=== PATIENT | female | born 1955 | race Caucasian/White ===

== ENCOUNTER 2018-12-05 15:47 | Emergency (ER) | payer MEDICARE, BC ==
--- NOTE | 2018-12-05 17:51 | EDM.PDOC ---
ED HPI GENERAL MEDICAL PROBLEM - General Chief Complaint: Genitourinary Problem Stated Complaint: UTI Time Seen by Provider: 12/05/18 15:55 Source of Information: Reports: Patient History Limitations: Reports: No Limitations - History of Present Illness INITIAL COMMENTS - FREE TEXT/NARRATIVE: 63-year-old female presents emergency room with complaints of abdominal pressure. Her symptoms began around . She's had some recent urinary tract infections this year and required under duration of antibiotics. She began noticing some increasing discomfort in her lower abdomen pelvic region which she describes as pressure since and thought was getting worse. She denies any dysuria, hematuria or frequency. She's not experience any fever or chills. No nausea or vomiting. No diarrhea complaints. She stated her stools were softer yesterday. She was concerned because her last urinary tract infection she feels she did not follow-up with a warning signs that she describes and didn't want to take a chance of having a recurrent urinary tract infection today. Her diet and appetite has been good. He does have a history of high blood pressures well controlled. She denies any chest pain or shortness of breath. She's not had any headaches. She is otherwise been in her normal state of health. Onset Date: 12/03/18 Duration: Day(s):, Getting Worse Location: Reports: Pelvis Quality: Reports: Pressure Severity: Moderate Improves with: Reports: None Worsens with: Reports: None Associated Symptoms: Reports: No Other Symptoms. Denies: Fever/Chills, Nausea/ Vomiting - Related Data Allergies Allergy/AdvReac Type Severity Reaction Status Date / Time No Known Drug Allergies Allergy Cannot Verified 12/05/18 15:58 Remember Home Meds: Home Meds Levothyroxine 75 mcg PO DAILY 12/05/18 [History] amLODIPine [Norvasc] 10 mg PO DAILY 12/05/18 [History] Past Medical History HEENT History: Reports: Impaired Vision Cardiovascular History: Reports: Hypertension Genitourinary History: Reports: UTI, Recurrent [employer]MENT [employer]OVER History: Reports: - Infectious Disease History Infectious Disease History: Reports: Chicken Pox, Measles - Past Surgical History HEENT Surgical History: Reports: Tonsillectomy Cardiovascular Surgical History: Reports: None Female Surgical History: Reports: Section Social & Family History - Tobacco Use Smoking Status *Q: Never Smoker - Caffeine Use Caffeine Use: Reports: Coffee, Tea - Recreational Drug Use Recreational Drug Use: No ED ROS GENERAL - Review of Systems Review Of Systems: See Below Constitutional: Denies: Fever, Chills, Diaphoresis HEENT: Reports: No Symptoms Respiratory: Reports: No Symptoms Cardiovascular: Reports: Blood Pressure Problem. Denies: Chest Pain, Dyspnea on Exertion Endocrine: Reports: No Symptoms GI/Abdominal: Denies: Abdominal Pain, Black Stool, Diarrhea, Hematemesis, Nausea , Vomiting Musculoskeletal: Denies: Neck Pain, Back Pain Skin: Reports: No Symptoms Neurological: Reports: No Symptoms Psychiatric: Reports: No Symptoms Hematologic/Lymphatic: Reports: No Symptoms Immunologic: Reports: No Symptoms ED EXAM, RENAL/ - Physical Exam Exam: See Below Exam Limited By: No Limitations General Appearance: Alert, WD/WN, No Apparent Distress Ears: Hearing Grossly Normal Nose: Normal Inspection Throat/Mouth: Normal Inspection, Normal Voice, No Airway Compromise Head: Atraumatic, Normocephalic Neck: Normal Inspection Respiratory/Chest: No Respiratory Distress, Lungs Clear, Normal Breath Sounds Cardiovascular: Regular Rate, Rhythm GI/Abdominal: Normal Bowel Sounds, Soft, Non-Tender, No Organomegaly, No Distention, No Abnormal Bruit, No Mass, Pelvis Stable Back Exam: Normal Inspection Extremities: Normal Inspection, Normal Range of Motion Neurological: Alert, Oriented, Normal Gait, No Motor/Sensory Deficits Psychiatric: Normal Affect, Normal Mood Skin Exam: Warm, Dry, Intact, Normal Color, No Rash Lymphatic: No Adenopathy Course - Vital Signs Last Recorded V/S: Last Vital Signs Temp 96.8 F 12/05/18 15:56 Pulse 84 12/05/18 15:56 Resp 20 12/05/18 15:56 BP 176/88 H 12/05/18 15:56 Pulse Ox 99 12/05/18 15:56 - Orders/Labs/Meds Orders: Active Orders 24 hr Category Date Time Status CULTURE URINE [RM] Stat Lab 12/05/18 15:55 Received Labs: Laboratory Tests 12/05/18 12/05/18 12/05/18 Range/Units 15:59 17:33 17:33 WBC 8.20 (5.00-10.00) 10^3/uL RBC 5.00 (3.80-5.50) 10^6/uL Hgb 15.9 (12.0-16.0) g/dL Hct 45.9 (37.0-47.0) % MCV 91.8 (82.0-92.0) fL MCH 31.8 H (27.0-31.0) pg MCHC 34.6 (32.0-36.0) g/dL RDW 13.3 (11.5-14.5) % Plt Count 304 (150-400) 10^3/uL MPV 10.3 (7.4-10.4) fL Immature Gran % (Auto) 0.1 (0.0-5.0) % Neut % (Auto) 68.9 (50.0-70.0) % Lymph % (Auto) 23.2 (20.0-40.0) % [place] % (Auto) 5.9 (2.0-8.0) % Eos % (Auto) 1.5 (1.0-3.0) % Baso % (Auto) 0.4 (0.0-1.0) % Immature Gran # (Auto) 0.01 (0.00-0.50) 10^3/uL Neut # (Auto) 5.66 (2.50-7.00) 10^3/uL Lymph # (Auto) 1.90 (1.00-4.00) 10^3/uL [place] # (Auto) 0.48 (0.10-0.80) 10^3/uL Eos # (Auto) 0.12 (0.10-0.30) 10^3/uL Baso # (Auto) 0.03 (0.00-0.10) 10^3/uL Sodium 144 (136-145) mmol/L Potassium 3.6 (3.3-5.3) mmol/L Chloride 105 (98-115) mmol/L Carbon Dioxide 26.2 (21.0-32.0) mmol/L Anion Gap 16.4 H (5-15) mmol/L BUN 21 (6-25) mg/dL Creatinine 0.70 (0.51-1.17) mg/dL Est Cr Clr Drug Dosing 66.28 mL/min Estimated GFR (MDRD) > 60 mL/min Glucose 112 H (75 - 99) mg/dL Calcium 9.1 (8.7-10.3) mg/dL Specimen Type Urincc Urine Color Light yellow (YELLOW) Urine Appearance Clear (CLEAR) Urine pH 7.5 (5.0-9.0) Ur Specific [place] 1.015 (1.005-1.030) Urine Protein Negative (NEGATIVE) mg/dL Urine Glucose (UA) Negative (NEGATIVE) mg/dL Urine Ketones Negative (NEGATIVE) mg/dL Urine Occult Blood Negative (NEGATIVE) Urine Nitrite Negative (NEGATIVE) Urine Bilirubin Negative (NEGATIVE) Urine Urobilinogen 0.2 (0.2-1.0) E.U./dL Ur Leukocyte Esterase Negative (NEGATIVE) Urine RBC Not seen (0-5) /HPF Urine WBC 0-5 (0-5) /HPF Ur Epithelial Cells Rare /LPF Urine Bacteria Rare (NONE TO FEW) /HPF Departure - Departure Time of Disposition: 18:00 Disposition: Home, Self-Care 01 Condition: Good Clinical Impression: Generalized abdominal pressure - Discharge Information Instructions: Urinary Tract Infection, Adult, [id number] Referrals: Debora Camp PA-C [Primary Care Provider] - Forms: ED Department Discharge - My Orders Last 24 Hours: My Active Orders 12/05/18 15:55 CULTURE URINE [RM] Stat - Assessment/Plan Last 24 Hours: My Active Orders 12/05/18 15:55 CULTURE URINE [RM] Stat Assessment:: Abdominal pressure Possible early urinary tract infection, cultures pending Plan: 1. Follow-up urine culture results on Friday with Debora. 2. Continue with oral hydration. 3. Recommend drinking cranberry juice 4. Return to the ER if abdominal pain worsens
[2018-12-05 17:58] LABS: ANION GAP 16.4 mmol/L (5-15); CHLORIDE,CL 105 mmol/L (98-115); SODIUM,NA 144 mmol/L (136-145)
== END 2018-12-05 18:00 | disposition home or self-care (01) ==
LOC: KA.ED 15:47
DX: R10.84 Generalized abdominal pain (principal); I10 Essential (primary) hypertension; Z79.899 Other long term (current) drug therapy; Z98.890 Other specified postprocedural states
CPT/HCPCS: 36415; 80048; 81001; 85025; 87086; 99283

== ENCOUNTER 2022-08-17 08:35 | Emergency (ER) | payer MEDICARE, BC | END 2022-08-17 09:16 | disposition home or self-care (01) | LOC: KA.ED 08:35 | DX: N30.01 Acute cystitis with hematuria (principal); I10 Essential (primary) hypertension; Z91.048 Other nonmedicinal substance allergy status; Z79.899 Other long term (current) drug therapy | CPT/HCPCS: 81001; 87086; 87088; 87186; 99283; 99284 ==